=== PATIENT | male | born 1970 | race Caucasian/White ===

== ENCOUNTER 2020-02-23 21:31 | Emergency (ER) | payer OTHER ==
[~2020-02-23] VITALS: Ht 182.9 cm; Wt 97.7 kg
[2020-02-23 21:44] VITALS: BP 156/112
[2020-02-23] MEDS ORDERED: LIDOCAINE 1% PF 30 ML VIAL. INJ ONE (22:00)
[2020-02-23] MEDS ORDERED: CLINDAMYCIN HCL 150 MG CAPSULE PO ONE (22:00)
[2020-02-23] MEDS ORDERED: CLIN150C14 PO (22:41)
--- NOTE | 2020-02-23 22:41 | PHYS DOC ---
Past History Past Medical History: No Pertinent History Past Surgical History: Other Additional Past Surgical Histo: ORAL SX Alcohol Use: Occasionally General Adult EDM: Chief Complaint: ANIMAL BITE HPI: HPI: Patient is a 49 MALE WHO presented with facial laceration due to a dog bite. Patient was walking behind his son's dog who is up to date on vaccination status. The dog had a chewed toy in his mouth. Patient bent over to bat the dog on the back, startled the dog. He turned around and bit him on the face. Patient is up to date on vaccination status as well. The dog has been acting normal, CAN BE QUARANTINED FOR OBSERVATION. It happened about 30 minutes ago. Review of Systems: Review of Systems: Constitutional: Denies fever or chills Eyes: Denies change in visual acuity HENT: Denies nasal congestion or sore throat Respiratory: Denies cough or shortness of breath Cardiovascular: Denies chest pain or edema GI: Denies abdominal pain, nausea, vomiting, bloody stools or diarrhea : Denies dysuria Musculoskeletal: Denies back pain or joint pain Integument: facial laceration. Neurologic: Denies headache, focal weakness or sensory changes Endocrine: Denies polyuria or polydipsia Lymphatic: Denies swollen glands Psychiatric: Denies depression or anxiety Heart Score: Risk Factors: Risk Factors: DM, Current or recent (<one month) smoker, HTN, HLP, family history of CAD, obesity. Risk Scores: Score 0 - 3: 2.5% MACE over next 6 weeks - Discharge Home Score 4 - 6: 20.3% MACE over next 6 weeks - Admit for Clinical Observation Score 7 - 10: 72.7% MACE over next 6 weeks - Early Invasive Strategies Current Medications: Current Meds: Current Medications Medications (Trade) Dose Ordered Sig/Patel Start Time Stop Time Status Last Admin Dose Admin Clindamycin HCl (Cleocin) 300 mg 1X ONCE 02/23/20 22:00 02/23/20 22:01 DC 02/23/20 21:53 300 MG Lidocaine HCl (Lidocaine 1% Pf) 30 ml 1X ONCE 02/23/20 22:00 02/23/20 22:01 DC 02/23/20 21:53 30 ML Allergies: Allergies: Allergies Coded Allergies Type Severity Reaction Last Updated Verified Penicillins Allergy Intermediate 02/23/20 Yes Physical Exam: PE: Constitutional: Well developed, well nourished, no acute distress, non-toxic appearance. [] HENT: Normocephalic, atraumatic, bilateral external ears normal, oropharynx moist, no oral exudates, nose normal. [] Eyes: PERRLA, EOMI, conjunctiva normal, no discharge. [] Neck: Normal range of motion, no tenderness, supple, no stridor. [] Cardiovascular:Heart rate regular rhythm, no murmur [] Lungs & Thorax: Bilateral breath sounds clear to auscultation [] Abdomen: Bowel sounds normal, soft, no tenderness, no masses, no pulsatile masses. [] Skin: Warm, dry, multiple skin abrasion on left cheek, there is 2.5 cm laceration on left cheek. Back: No tenderness, no CVA tenderness. [] Extremities: No tenderness, no cyanosis, no clubbing, ROM intact, no edema. [] Neurologic: Alert and oriented X 3, normal motor function, normal sensory function, no focal deficits noted. [] Psychologic: Affect normal, judgement normal, mood normal. [] Current Patient Data: Vital Signs: Vital Signs Date Time Temp Pulse Resp B/P (MAP) Pulse Ox O2 Delivery O2 Flow Rate FiO2 02/23/20 21:44 98.1 67 18 156/112 (127) 98 Room Air EKG: EKG: [] Radiology/Procedures: Radiology/Procedures: Laceration Procedure: Location: LEFT SIDE FACE Anesthesia: 1% LIDOCAINE, 15 ML total lenght of laceration: 2.5 CM Number of sutures: 7 Suture Material: NYLON Technique: SIMPLE INTERRUPTOUS, ONE LAYER. Patient tolerated procedure well. The wound was dressed with: GAUZE. Course & Med Decision Making: Course & Med Decision Making Pertinent Labs and Imaging studies reviewed. (See chart for details) [] Dragon Disclaimer: Dragon Disclaimer: This electronic medical record was generated, in whole or in part, using a voice recognition dictation system. Departure Departure: Impression: Primary Impression: Open wound of face due to animal bite Disposition: 01 HOME/RESIDENCE PRIOR TO ADM Condition: IMPROVED Referrals: PCP,NO (PCP) PLEASE FOLLOW UP WITH YOUR FAMILY DOCTOR IN 7 DAYS FOR SUTURES REMOVAL Patient Instructions: Animal Bite, Facial Laceration Scripts Clindamycin Hcl (CLINDAMYCIN HCL) 150 Mg Capsule 2 CAP PO QID for DOG BITE WOUND for 7 Days, #56 CAP Prov: DINORA SMALLS DO 02/23/20 Justification of Admission: Justification of Admission: Justification of Admission Dx: N/A DINORA SMALLS DO Feb 23, 2020 22:41
== END 2020-02-23 22:42 | disposition home or self-care (01) ==
LOC: ER 21:31
DX: S01.412A Laceration without foreign body of left cheek and temporomandibular area, initial encounter (principal); Z88.0 Allergy status to penicillin; W54.0XXA Bitten by dog, initial encounter; Y93.01 Activity, walking, marching and hiking; Y92.89 Other specified places as the place of occurrence of the external cause; Y99.8 Other external cause status
CPT/HCPCS: 12011; 99283; J2001